=== PATIENT | male | born 1975 | race Caucasian/White ===

== ENCOUNTER 2017-08-13 11:40 | Emergency (ER) | payer MEDICAID ==
[~2017-08-13] VITALS: Ht 175.3 cm; Wt 136.1 kg
[~2017-08-13 11:40] MED LIST: CRUTCH4 USE; HYDACE10B PO; HYDACE5 PO; LISHYD2025 PO; LORPSEER24; NAPR550 PO; POTPHO PO; Percocet 5-3251 EACH PO; Zofran8 MG PO
[2017-08-13] MEDS ORDERED: BENZ100A PO (12:36)
== END 2017-08-13 12:50 | disposition home or self-care (01) ==
LOC: ER 11:40
DX: J40 Bronchitis, not specified as acute or chronic (principal); I10 Essential (primary) hypertension; Z88.0 Allergy status to penicillin; Z88.2 Allergy status to sulfonamides; Z88.1 Allergy status to other antibiotic agents
CPT/HCPCS: 99282

== ENCOUNTER → 2022-01-18 | Outpatient (CLI) | payer OTHER ==
[~2022-01-18] MED LIST changes: +BENZ100A PO
== END ==
LOC: LAB 12:30 → LAB SHORT 12:30
DX: R30.0 Dysuria (principal)
CPT/HCPCS: 87086